=== PATIENT | male | born 1965 | race Caucasian/White ===

== ENCOUNTER 2019-03-11 12:54 | Outpatient (CLI) | payer BC ==
[~2019-03-11 12:54] MED LIST: ATOR20TA49 PO; ATRV10T; BISO1TAB39; FINA1TAB PO; GEMF600T PO; LEVO150T PO; LOVASA; MELO15TA14 PO; NAPR220T66 PO; NFPRILOC40 PO; OMEG1000 PO; OXYC1TAB87 PO; PNT40TEC; [UNRECOGNIZED DRUG - OTHER]
== END 2019-03-11 13:25 | disposition home or self-care (01) ==
LOC: SLEEP 12:54
PROVIDERS: ATTEND Otolaryngology Otolaryngology/Facial Plastic Surgery
DX: G47.33 Obstructive sleep apnea (adult) (pediatric) (principal); I10 Essential (primary) hypertension

== ENCOUNTER 2019-04-12 05:33 | Outpatient (CLI) | payer BC ==
[~2019-04-12] VITALS: Ht 188 cm; Wt 97.7 kg
[2019-04-12] MEDS ORDERED: BISO1TAB3 PO (13:15)
[2019-04-12] MEDS ORDERED: LEVO137T2 PO (13:15)
== END 2019-04-12 13:16 | disposition home or self-care (01) ==
LOC: PREOP 05:33
PROVIDERS: ATTEND Surgery
DX: Z01.818 Encounter for other preprocedural examination (principal)

== ENCOUNTER 2019-04-16 09:34 | Day surgery (SDC) | payer BC ==
[~2019-04-16] VITALS: Ht 188 cm; Wt 97.7 kg
[~2019-04-16 09:34] MED LIST changes: +BISO1TAB3 PO; +LEVO137T2 PO
[2019-04-16] MEDS ORDERED: LACTATED RINGERS 1,000 ML IV ONE (09:36)
[2019-04-16] MEDS ORDERED: LACTATED RINGERS 1,000 ML IV STA (09:40)
[2019-04-16] MEDS ORDERED: LIDOCAINE JELLY 2% 6 ML SYRINGE MM PRN (09:45)
[2019-04-16] MEDS ORDERED: LIDOCAINE JELLY 2% 6 ML SYRINGE ONE (09:52)
[2019-04-16 09:53] VITALS: BP 132/90
[2019-04-16] MEDS ORDERED: proPOfol 200 MG/20 ML (DIPRIVAN) VIAL IV ONE (10:03)
[2019-04-16] MEDS ORDERED: MIDAZOLAM 2 MG/2 ML (VERSED) VIAL ONE (10:04)
--- NOTE | 2019-04-16 10:04 | Progress Note-Pre Operative ---
Pre-Operative Progress Note H&P Reviewed The H&P was reviewed, patient examined and no changes noted. Date Seen by Provider: Apr 16, 2019 Time Seen by Provider: 10:00 Date H&P Reviewed: Apr 16, 2019 Time H&P Reviewed: 10:00 Pre-Operative Diagnosis: BRYSON Castelan MD Apr 16, 2019 10:04
--- NOTE | 2019-04-16 10:06 | Discharge Inst-Surgical ---
D/C Lap Instructions-SHAKIRA Follow Up Activity as tolerated High Fiber Diet 25g or more per day Avoid Alcohol, Caffeine, Spicy [place] and Acid foods. Drink 64 fluid oz or more of fluids per day. Symptoms to Report: Fever over 101 degree F, Nausea/Vomiting If any problems/questions: Contact your physician or go to Emergency Room BRYSON ROSENBERG MD Apr 16, 2019 10:06
[2019-04-16] MEDS ORDERED: ONDANSETRON 4 MG/2 ML (SDV) Z0FRAN IVP PRN (10:15)
[2019-04-16] MEDS ORDERED: HYDROcodone/APAP 5 MG/325 MG (LORTAB) TAB PO PRN (10:15)
[2019-04-16] MEDS ORDERED: ACETAMINOPHEN 325 MG TABLET PO PRN (10:15)
[2019-04-16] MEDS ORDERED: morphine INJ 10 MG/ML 1ML (SYR OR VIAL) IVP PRN ×2 (10:15)
[2019-04-16 10:30] VITALS: BP 109/65
[2019-04-16 10:35] VITALS: BP 112/66
--- NOTE | 2019-04-16 11:02 | Anesthesia-General Post-Op ---
MAC Patient Condition Mental Status/LOC: Same as Preop Cardiovascular: Satisfactory Nausea/Vomiting: Absent Respiratory: Satisfactory Pain: Controlled Complications: Absent Post Op Complications Complications None Follow Up Care/Instructions Patient Instructions None needed. Anesthesiology Discharge Order Discharge Order Patient is doing well, no complaints, stable vital signs, no apparent adverse anesthesia problems. MONTSERRAT HOBSON DO Apr 16, 2019 11:02
[2019-04-16 11:10] VITALS: BP 119/83
[2019-04-16 11:12] VITALS: BP 119/83
--- NOTE | 2019-04-16 11:23 | Progress Note-Post Operative ---
Post-Operative Progess Note Surgeon (s)/Sales Representative [employer] (s) Surgeon BRYSON ROSENBERG MD [employer]: none Pre-Operative Diagnosis screening colo Post-Operative Diagnosis mild chronic stage 1 ext and int hemorrhoids. Procedure & Operative Findings Date of Procedure 04/16/19 Procedure Performed/Findings colonoscopy Anesthesia Type mac Estimated Blood Loss Estimated blood loss (mL): minimal Specimens/Packing Specimens Removed none BRYSON ROSENBERG MD Apr 16, 2019 11:23
--- NOTE | 2019-04-16 14:54 | OPERATIVE REPORT ---
DATE OF SERVICE: 04/16/2019 ATTENDING PRIMARY CARE PHYSICIAN: Dr. Sim. PREOPERATIVE DIAGNOSIS: Screening colonoscopy. POSTOPERATIVE DIAGNOSIS: Mild chronic stage I external and internal hemorrhoids. PROCEDURE: Colonoscopy. SURGEON: Bryson Atkins MD ANESTHESIA: Monitored anesthesia care. ESTIMATED BLOOD LOSS: Minimal. FINDINGS: Normal colon and rectum. Mild hemorrhoids. DISPOSITION: The patient tolerated the procedure well. INDICATIONS: The patient is a 53-year-old male referred over to us for screening colonoscopy. He states that he is doing well, does not report any major issues with diarrhea nor constipation as well as no red blood per rectum nor any dark tarry stools. He also does not report any family history of colon cancer. DESCRIPTION OF PROCEDURE: The patient was brought to the endoscopy suite and laid in the left lateral decubitus position. After adequate IV pain and sedative medications and monitored anesthesia care, a digital rectal examination was performed. Mild chronic stage I external and internal hemorrhoids were identified, which were not actively edematous nor inflamed and no bleeding. Normal sphincter tone was felt and there were no palpable masses. Prostate gland was palpable and appeared normal. The endoscope was then intubated to the anus and rectum gently insufflated. The endoscope was then advanced to the valves of [place] of the rectum with no polyps or any neoplasms identified. Through the sigmoid colon, there were no diverticulosis identified. The endoscope was then advanced to the remainder of the descending, transverse and ascending colon to the cecum, and these segments were normal. There were no polyps or any neoplasms identified throughout the colon or rectum. Endoscope was then slowly withdrawn while taking a second look and suctioning of residual air with no additional findings. The patient tolerated the procedure well. We will recommend continued medical management with high fiber diet with 30 grams of fiber daily as well as significant amounts of water to promote soft stools on a daily basis. He does not need another colonoscopy for another 10 years. Job ID: [id number] DocumentID: [id number] Dictated Date: 04/16/2019 10:31:00 Handkerchief Folder Date: 04/16/2019 14:54:39 Dictated By: BRYSON ATKINS MD
== END 2019-04-16 11:13 | disposition home or self-care (01) ==
LOC: ENDO 09:34
PROVIDERS: ATTEND Surgery
DX: Z12.11 Encounter for screening for malignant neoplasm of colon (principal); K64.0 First degree hemorrhoids; K64.4 Residual hemorrhoidal skin tags; I10 Essential (primary) hypertension; E78.5 Hyperlipidemia, unspecified; M19.90 Unspecified osteoarthritis, unspecified site; Z90.89 Acquired absence of other organs; Z85.850 Personal history of malignant neoplasm of thyroid; Z79.899 Other long term (current) drug therapy; Z90.49 Acquired absence of other specified parts of digestive tract